=== PATIENT | female | born 1970 | race American Indian/Alaskan Native ===

== ENCOUNTER 2017-02-17 12:17 | Emergency (ER) | payer MEDICAID ==
[2017-02-17 13:27] VITALS: BP 133/74
--- NOTE | 2017-02-17 13:59 | Emergency Department Report ---
Chief Complaint: Extremity Injury, Lower Stated Complaint: BACK/LEG PAIN Time Seen by Provider: 02/17/17 13:56 - HPI History of Present Illness: Patient presents to ED with c/o left lower leg pain x 3 days; denies recent injuries, trauma or falls, recent long distance travel, H/O clots or CA, OCP use , CP and SOB; denies noticing any leg swelling - ROS Review of Systems: Negative except for those stated in HPI - Exam Vital Signs: Vital Signs 02/17/17 13:24 Temperature 97.4 F L Pulse Rate 69 Respiratory 18 Rate Blood Pressure 133/74 O2 Sat by Pulse 100 Oximetry Physical Exam: Left leg - no edema noted, good pedal pulse present; TTP over left calf and posterior aspect of left distal thigh Ambulatory with antalgic gait MSE screening note: Focused history and physical exam performed. Due to findings the following was ordered: Doppler US ED Disposition for MSE Condition: Stable
[2017-02-17] MEDS ORDERED: MOTRIN PO ONE (15:39)
--- NOTE | 2017-02-17 15:39 | Emergency Department Report ---
ED Extremity Problem HPI - General Chief complaint: Extremity Injury, Lower Stated complaint: BACK/LEG PAIN Time Seen by Provider: 02/17/17 14:54 Source: patient, family Mode of arrival: Ambulatory Limitations: No Limitations - History of Present Illness Initial comments: Patient reports that she has a left leg pain for several days radiating up her leg behind her knee and left hip. She denies any injury and had similar incident in the past. She says she has occasional swelling. Pain is 7 out of 10 and a kid. Denies any history of blood clots personally or in her family. Denies any clotting disorder. Denies any long distance travel by car or airplane. Denies any recent surgery or recent immobilization. Denies taking any hormones. Denies history of cancer . Patient she is taking Motrin and it' s not helping. Denies any nausea or vomiting. Denies any shortness of breath or chest pain. Patient with medical problems of arthritis. Denies any fever or chills. MD Complaint: extremity pain, extremity swelling Onset/Timin -: days(s) Location: left, lower extremity History of Same: Yes -: No myalgia, Yes arthralgia, No fever, No associated dyspnea, No associated chest pain Radiation: proximal Severity scale (0 -10): 7 Quality: aching Consistency: intermittent Improves with: immobilization, rest Worsens with: weight bearing, walking Associated Symptoms: arthralgias. denies: chest pain, shortness of breath, fever, myalgias, rash - Related Data Previous Rx's Medication Instructions Recorded Last Taken Type Fluticasone [Flonase] 1 spray NS QDAY #1 bottle 12/26/14 Unknown Rx methylPREDNISolone [Medrol Dose 4 mg PO QAM #1 pack 12/26/14 Unknown Rx Anders] Naproxen [Naprosyn] 500 mg PO BID PRN 5 Days #12 tablet 02/17/17 Unknown Rx Allergies Allergy/AdvReac Type Severity Reaction Status Date / Time codeine Allergy Unknown Verified 12/26/14 09:19 ED Review of Systems ROS: Stated complaint: BACK/LEG PAIN Other details as noted in HPI Comment: All other systems reviewed and negative Constitutional: no symptoms reported Respiratory: no symptoms reported Cardiovascular: denies: chest pain, palpitations, dyspnea on exertion, edema, syncope, paroxysmal nocturnal dyspnea Gastrointestinal: denies: abdominal pain, nausea, vomiting, diarrhea, constipation Musculoskeletal: arthralgia, other. denies: back pain, joint swelling, myalgia Skin: denies: rash Neurological: denies: headache, weakness, numbness, paresthesias, confusion, abnormal gait, vertigo ED Past Medical Hx - Past Medical History Previous Medical History?: Yes Hx Arthritis: Yes - Surgical History Past Surgical History?: Yes Hx Cholecystectomy: Yes - Family History Family history: no significant - Social History Smoking Status: Current Every Day Smoker Substance Use Type: None - Medications Home Medications: Home Medications Medication Instructions Recorded Confirmed Last Taken Type Fluticasone [Flonase] 1 spray NS QDAY #1 bottle 12/26/14 Unknown Rx methylPREDNISolone [Medrol Dose 4 mg PO QAM #1 pack 12/26/14 Unknown Rx Anders] Naproxen [Naprosyn] 500 mg PO BID PRN 5 Days #12 tablet 02/17/17 Unknown Rx ED Physical Exam - General Limitations: No Limitations General appearance: alert, in no apparent distress - Head Head exam: Present: atraumatic, normocephalic, normal inspection - Eye Eye exam: Present: normal appearance, PERRL, EOMI Pupils: Present: normal accommodation - ENT ENT exam: Present: normal exam, normal orophraynx, mucous membranes moist - Neck Neck exam: Present: normal inspection, full ROM, other (no c- spine tenderness) . Absent: tenderness, meningismus, lymphadenopathy - Respiratory Respiratory exam: Present: normal lung sounds bilaterally. Absent: respiratory distress, chest wall tenderness, accessory muscle use - Cardiovascular Cardiovascular Exam: Present: regular rate, normal rhythm, normal heart sounds. Absent: systolic murmur, diastolic murmur - GI/Abdominal GI/Abdominal exam: Present: soft, normal bowel sounds. Absent: distended, tenderness, guarding, rebound, rigid - Extremities Exam Extremities exam: Present: normal inspection, full ROM, normal capillary refill , calf tenderness (patient reports pain with palpation of left calf and foot distended with putting pressure on her left toes.), other (no clubbing, cyanosis or edema. +2 pulses in all extremities. No neurovascular compromise.) . Absent: tenderness, pedal edema, joint swelling - Expanded Lower Extremity Exam Left Hip exam: Present: normal inspection, full ROM, pelvic stability. Absent: tenderness, swelling, abrasion, laceration, ecchymosis, deformity, crepidus, dislocation, erythema, external rotation, internal rotation, shortening Upper Leg exam: Present: normal inspection, full ROM. Absent: tenderness, swelling, abrasion, laceration, ecchymosis, deformity, crepidus, dislocation, erythema Knee exam: Present: normal inspection, full ROM, full knee extension. Absent: tenderness, swelling, abrasion, laceration, ecchymosis, deformity, crepidus, dislocation, erythema, effusion, pain w/ pronation/supination, posterior draw sign, pain/laxity with valgus, pain/laxity with varus Lower Leg exam: Present: normal inspection, full ROM, Olivia's sign (she reports pain with standing on her toes to her left leg pain is in her calf area on the left side.). Absent: tenderness, swelling, abrasion, laceration, ecchymosis, deformity, crepidus, dislocation, erythema, palpable cord Ankle exam: Present: normal inspection, full ROM. Absent: tenderness, swelling , abrasion, laceration, ecchymosis, deformity, crepidus, dislocation, erythema Foot/Toe exam: Present: normal inspection, full ROM. Absent: tenderness, swelling, abrasion, laceration, ecchymosis, deformity, crepidus, dislocation, erythema, amputation, puncture wound, foreign body, calcaneal tenderness, tenderness at base of 5th metatarsal, nail avulsion, subungual hematoma Neuro vascular tendon exam: Present: no vascular compromise. Absent: pulse deficit, abnormal cap refill, motor deficit, sensory deficit, tendon deficit, extremity cold to touch, pallor, abnormal 2-point discrimination, decreased fine /light touch, foot drop, peroneal nerve deficit, significant pain with passive ROM of distal joint Gait: Positive: observed and normal - Back Exam Back exam: Present: normal inspection, full ROM, other (patient able to ambulate without any difficulties). Absent: tenderness, CVA tenderness (R), CVA tenderness (L), muscle spasm, paraspinal tenderness, vertebral tenderness, rash noted - Neurological Exam Neurological exam: Present: alert, oriented X3, normal gait, reflexes normal. Absent: motor sensory deficit - Psychiatric Psychiatric exam: Present: normal affect, normal mood - Skin Skin exam: Present: warm, dry, intact, normal color. Absent: rash ED Course Vital Signs 02/17/17 13:24 Temperature 97.4 F L Pulse Rate 69 Respiratory 18 Rate Blood Pressure 133/74 O2 Sat by Pulse 100 Oximetry - Reevaluation(s) Reevaluation #1: 02/17/17 17:11 She received Motrin 800 mg emergency room for left leg pain. Venous Doppler left lower extremity negative and CBC and chemistry is stable ED Medical Decision Making - Lab Data Result diagrams: 02/17/17 15:44 02/17/17 15:44 Lab Results 02/17/17 02/17/17 Range/Units 15:44 15:44 WBC 4.8 (4.5-11.0) K/mm3 RBC 4.20 (3.65-5.03) M/mm3 Hgb 13.3 (10.1-14.3) gm/dl Hct 40.4 (30.3-42.9) % MCV 96 (79-97) fl MCH 32 (28-32) pg MCHC 33 (30-34) % RDW 13.4 (13.2-15.2) % Plt Count 248 (140-440) K/mm3 Lymph % (Auto) 35.5 H (13.4-35.0) % Linn % (Auto) 10.3 H (0.0-7.3) % Eos % (Auto) 2.8 (0.0-4.3) % Baso % (Auto) 1.6 (0.0-1.8) % Lymph # 1.7 (1.2-5.4) K/mm3 Linn # 0.5 (0.0-0.8) K/mm3 Eos # 0.1 (0.0-0.4) K/mm3 Baso # 0.1 (0.0-0.1) K/mm3 Seg Neutrophils % 49.8 (40.0-70.0) % Seg Neutrophils # 2.4 (1.8-7.7) K/mm3 Sodium 140 (137-145) mmol/L Potassium 4.1 (3.6-5.0) mmol/L Chloride 101.4 (98-107) mmol/L Carbon Dioxide 27 (22-30) mmol/L Anion Gap 16 mmol/L BUN 9 (7-17) mg/dL Creatinine 0.5 L (0.7-1.2) mg/dL Estimated GFR > 60 ml/min BUN/Creatinine Ratio 18 % Glucose 81 (65-100) mg/dL Calcium 9.1 (8.4-10.2) mg/dL - Radiology Data Radiology results: report reviewed Venous Doppler ultrasound left lower extremity negative - Medical Decision Making ED course: Patient presented to the emergency room with pain to her left leg radiating up to her left knee. Also complaining of pain to left hip. She had no injuries and based on well's criteria she is no risk for clots. Patient was given Motrin 800 mg of pain and ultrasound venous Doppler left leg negative for clots. CBC and BMP stable. This was explained to patient. I discussed with her that she needs to follow-up with orthopedic doctor for pain to lower extremity. Patient discharged home with prescription for naproxen. Critical care attestation.: If time is entered above; I have spent that time in minutes in the direct care of this critically ill patient, excluding procedure time. ED Disposition Clinical Impression: Arthralgia of multiple sites Disposition: TO HOME OR SELFCARE Is pt being admited?: No Does the pt Need Aspirin: No Condition: Stable Instructions: Arthralgia (ED) Additional Instructions: Please follow up with orthopedic doctor in 2-3 days regarding pain to left lower extremity Take Naproxen for pain. Prescriptions: Naproxen [Naprosyn] 500 mg PO BID PRN 5 Days #12 tablet PRN Reason: Pain Referrals: PRIMARY MD MAJO [Primary Care Provider] - 2-3 Days CHRISTINE OLSEN MD [Staff Physician] - 2-3 Days Forms: Work/School Release Form(ED)
[2017-02-17 15:56] LABS: Basophils % (Auto) 1.6 % (0.0-1.8); Eosinophils % (Auto) 2.8 % (0.0-4.3); Hematocrit 40.4 % (30.3-42.9); Hemoglobin 13.3 gm/dl (10.1-14.3); Mean Corpuscular HGB Conc 33 % (30-34); Mean Corpuscular Hemoglobin 32 pg (28-32); Mean Corpuscular Volume 96 fl (79-97); Platelet Count 248 K/mm3 (140-440); Red Cell Distribution Width 13.4 % (13.2-15.2); White Blood Count 4.8 K/mm3 (4.5-11.0)
[2017-02-17 16:20] LABS: Anion Gap 16 mmol/L; BUN/Creatinine Ratio 18; Blood Urea Nitrogen 9 mg/dL (7-17); Calcium 9.1 mg/dL (8.4-10.2); Carbon Dioxide 27 mmol/L (22-30); Chloride 101.4 mmol/L (98-107); Glucose 81 mg/dL (65-100); Potassium 4.1 mmol/L (3.6-5.0); Sodium 140 mmol/L (137-145)
--- NOTE | 2017-02-18 11:12 | Vascular Lab Report ---
Left Lower Extremity Venous Duplex Study: Reason for Exam: Pain of the left lower extremity. Comments on the Right: A limited duplex study was done of the proximal veins of the right lower extremity. All veins visualized are freely compressible without evidence of internal echogenicity. Flow is spontaneous and phasic throughout. No evidence of acute or chronic thrombus is seen in any of the vessels visualized. Comments on the Left: All veins visualized are freely compressible without evidence of internal echogenicity. Flow is spontaneous and phasic throughout. No evidence of acute or chronic thrombus is seen in any of the vessels visualized. Impression: No evidence of acute or chronic deep venous thrombosis in the left lower extremity.
== END 2017-02-17 17:25 | disposition home or self-care (01) ==
LOC: ED 12:17
DX: M25.562 Pain in left knee (principal); M25.552 Pain in left hip; M19.90 Unspecified osteoarthritis, unspecified site; F17.200 Nicotine dependence, unspecified, uncomplicated; Z88.6 Allergy status to analgesic agent; Z90.49 Acquired absence of other specified parts of digestive tract
CPT/HCPCS: 36415; 80048; 85025; 99283

== ENCOUNTER 2017-05-13 15:50 | Emergency (ER) | payer MEDICAID ==
[2017-05-13 17:09] VITALS: BP 127/84
== END 2017-05-13 19:45 | disposition left against medical advice (07) ==
LOC: ED 15:50
DX: M79.89 Other specified soft tissue disorders (principal); Z53.21 Procedure and treatment not carried out due to patient leaving prior to being seen by health care provider

== ENCOUNTER 2017-05-14 09:55 | Emergency (ER) | payer MEDICAID ==
[2017-05-14 11:35] LABS: Hematocrit 39.5 % (30.3-42.9); Hemoglobin 13.1 gm/dl (10.1-14.3); Mean Corpuscular HGB Conc 33 % (30-34); Mean Corpuscular Hemoglobin 32 pg (28-32); Mean Corpuscular Volume 96 fl (79-97); Platelet Count 264 K/mm3 (140-440); Red Blood Count 4.12 M/mm3 (3.65-5.03)
[2017-05-14 11:44] LABS: INR 0.96 (0.87-1.13)
--- NOTE | 2017-05-14 12:38 | Emergency Department Report ---
ED Extremity Problem HPI - General Chief complaint: Extremity Problem,Nontraumatic Stated complaint: LEG PAIN Time Seen by Provider: 05/14/17 12:11 Source: patient Mode of arrival: Ambulatory Limitations: No Limitations - History of Present Illness Initial comments: Is a 46-year-old Taj[place] female who was presented with 2-3 days of left lower extremity pain. Patient states his aching pain with some mild swelling. Patient states the pain started behind the knee is now extending into the calf. Patient denies any chest pain shortness of breath at this time. Patient denies any injury or trauma. Severity scale (0 -10): 6 Quality: aching Consistency: constant Worsens with: weight bearing, walking, exertion, palpation - Related Data Previous Rx's Medication Instructions Recorded Last Taken Type Fluticasone [Flonase] 1 spray NS QDAY #1 bottle 12/26/14 Unknown Rx methylPREDNISolone [Medrol Dose 4 mg PO QAM #1 pack 12/26/14 Unknown Rx Anders] Naproxen [Naprosyn] 500 mg PO BID PRN 5 Days #12 tablet 02/17/17 Unknown Rx Ibuprofen [Motrin] 600 mg PO Q8H PRN #20 tablet 05/14/17 Unknown Rx traMADol [Ultram] 50 mg PO Q6HR PRN #12 tablet 05/14/17 Unknown Rx Allergies Allergy/AdvReac Type Severity Reaction Status Date / Time codeine Allergy Unknown Verified 12/26/14 09:19 ED Review of Systems ROS: Stated complaint: LEG PAIN Other details as noted in HPI Comment: All other systems reviewed and negative ED Past Medical Hx - Past Medical History Hx Arthritis: Yes - Surgical History Hx Cholecystectomy: Yes - Social History Smoking Status: Never Smoker Substance Use Type: None - Medications Home Medications: Home Medications Medication Instructions Recorded Confirmed Last Taken Type Fluticasone [Flonase] 1 spray NS QDAY #1 bottle 12/26/14 Unknown Rx methylPREDNISolone [Medrol Dose 4 mg PO QAM #1 pack 12/26/14 Unknown Rx Anders] Naproxen [Naprosyn] 500 mg PO BID PRN 5 Days #12 tablet 02/17/17 Unknown Rx Ibuprofen [Motrin] 600 mg PO Q8H PRN #20 tablet 05/14/17 Unknown Rx traMADol [Ultram] 50 mg PO Q6HR PRN #12 tablet 05/14/17 Unknown Rx ED Physical Exam - General Limitations: No Limitations General appearance: alert, in no apparent distress - Head Head exam: Present: atraumatic, normocephalic - Eye Eye exam: Present: normal appearance - ENT ENT exam: Present: mucous membranes moist - Neck Neck exam: Present: normal inspection - Respiratory Respiratory exam: Present: normal lung sounds bilaterally. Absent: respiratory distress, wheezes, rales - Cardiovascular Cardiovascular Exam: Present: regular rate, normal rhythm. Absent: systolic murmur, diastolic murmur, rubs, gallop - GI/Abdominal GI/Abdominal exam: Present: soft, normal bowel sounds. Absent: distended, tenderness, guarding, rebound - Extremities Exam Extremities exam: Present: normal inspection, tenderness (patient has mild tenderness to the posterior left knee. There is some noticeable swelling to the left calf compared to the right there is no warmth erythema or redness to the skin.) - Back Exam Back exam: Present: normal inspection - Neurological Exam Neurological exam: Present: alert, oriented X3 - Psychiatric Psychiatric exam: Present: normal affect, normal mood - Skin Skin exam: Present: warm, dry, intact, normal color. Absent: rash ED Course Vital Signs 05/14/17 10:20 Temperature 97.9 F Pulse Rate 76 Blood Pressure 132/77 O2 Sat by Pulse 99 Oximetry ED Medical Decision Making - Lab Data Result diagrams: 05/14/17 11:08 - Radiology Data Radiology results: report reviewed No evidence of DVT there is some posterior knee soft tissue swelling - Medical Decision Making Patient is a 46-year-old female who most likely had a Rincon's cyst with a leak. Patient be placed in an Harman wrap follow orthopedics and was given pain meds be discharged home. Critical care attestation.: If time is entered above; I have spent that time in minutes in the direct care of this critically ill patient, excluding procedure time. ED Disposition Clinical Impression: Rincon cyst Qualifiers: Laterality: left Qualified Code(s): M71.22 - Synovial cyst of popliteal space [ Rincon], left knee Disposition: - TO HOME OR SELFCARE Is pt being admited?: No Does the pt Need Aspirin: No Condition: Stable Instructions: Rincon's Cyst (ED) Prescriptions: Ibuprofen [Motrin] 600 mg PO Q8H PRN #20 tablet PRN Reason: Pain traMADol [Ultram] 50 mg PO Q6HR PRN #12 tablet PRN Reason: Pain Referrals: CHRISTINE OLSEN MD [Staff Physician] - 3-5 Days
[2017-05-14 13:00] VITALS: BP 130/70
--- NOTE | 2017-05-16 10:12 | Vascular Lab Report ---
Left Lower Extremity Venous Duplex Study: Reason for Exam: Pain and swelling of the left lower extremity. Comments on the Right: A limited duplex study was done of the proximal veins of the right lower extremity. All veins visualized are freely compressible without evidence of internal echogenicity. Flow is spontaneous and phasic throughout. No evidence of acute or chronic thrombus is seen in any of the vessels visualized. Comments on the Left: All veins visualized are freely compressible without evidence of internal echogenicity. Flow is spontaneous and phasic throughout. No evidence of acute or chronic thrombus is seen in any of the vessels visualized. There are soft tissue change in the left knee area most compatible with a Rincon's cyst and effusion. Impression: No evidence of acute or chronic deep venous thrombosis in the left lower extremity.
== END 2017-05-14 13:01 | disposition home or self-care (01) ==
LOC: ED 09:55
DX: M71.22 Synovial cyst of popliteal space [Baker], left knee (principal); Z90.49 Acquired absence of other specified parts of digestive tract
CPT/HCPCS: 36415; 85027; 85610; 85730; 99283

== ENCOUNTER 2018-08-12 08:45 | Emergency (ER) | payer MEDICAID, OTHER ==
[2018-08-12 08:50] VITALS: BP 135/82
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
--- NOTE | 2018-08-12 09:59 | XRay Report ---
LUMBOSACRAL SPINE, 3 VIEWS: History: Back pain Findings: Minimal levocurvature is suspected on the frontal image. There is normal height and alignment of the vertebral bodies otherwise. No evidence for compression deformity, subluxation or bone lesion. Mild degenerative disc disease and facet arthropathy are identified at all levels. The sacrum and SI joints are within normal limits. Impression: Mild lumbar spondylosis. Mild levoscoliosis. No acute injury is appreciated.
== END 2018-08-12 10:33 | disposition home or self-care (01) ==
LOC: ED 08:45
DX: M54.42 Lumbago with sciatica, left side (principal); M19.90 Unspecified osteoarthritis, unspecified site
CPT/HCPCS: 72100